=== PATIENT | female | born 1960 | race Caucasian/White ===

== ENCOUNTER 2017-02-24 12:09 | Day surgery (SDC) | payer OTHER ==
[2017-02-24] MEDS ORDERED: PROPOFOL 20 ML (14:50)
== END 2017-02-24 15:10 | disposition home or self-care (01) ==
LOC: GIL 12:09
DX: Z12.11 Encounter for screening for malignant neoplasm of colon (principal); K57.90 Diverticulosis of intestine, part unspecified, without perforation or abscess without bleeding; K64.8 Other hemorrhoids
CPT/HCPCS: 45378